=== PATIENT | female | born 1995 | race American Indian/Alaskan Native ===

== ENCOUNTER 2020-08-27 09:49 | Emergency (ER) | payer OTHER ==
[2020-08-27 10:04] VITALS: BP 119/82
[2020-08-27] MEDS ORDERED: ALUM-MAG HYDROXIDE-SIMETHICONE 200-200-20MG/5ML ORAL LIQD 30 ML PO STA (10:44)
[2020-08-27] MEDS ORDERED: diphenhydrAMINE 25 MG/10 ML ORAL LIQUID PO ONE (10:52)
[2020-08-27] MEDS ORDERED: LIDOCAINE VISCOUS 2% 15 ML ORAL LIQD PO ONE (10:52)
[2020-08-27 11:02] LABS: Basophils % (Auto) 0.5 % (0.0-1.8); Eosinophils % (Auto) 0.8 % (0.0-4.3); Hematocrit 41.2 % (30.3-42.9); Lymphocytes # (Auto) 1.2 K/mm3 (1.2-5.4); Mean Corpuscular HGB Conc 34 % (30-34); Mean Corpuscular Volume 88 fl (79-97); Monocytes # (Auto) 0.5 K/mm3 (0.0-0.8); Monocytes % (Auto) 12.7 % (0.0-7.3); Platelet Count 321 K/mm3 (140-440); Red Blood Count 4.68 M/mm3 (3.65-5.03); Red Cell Distribution Width 13.8 % (13.2-15.2)
--- NOTE | 2020-08-27 11:14 | Emergency Department Report ---
ED N/V/D HPI - General Chief complaint: Abdominal Pain Stated complaint: PAIN ON LEFT SIDE, VOMITING Time Seen by Provider: 08/27/20 10:37 Source: patient Mode of arrival: Ambulatory Limitations: No Limitations - History of Present Illness Initial comments: 35-year-old -[place] female [facility] emergency department complaining of left upper quadrant abdominal pain ache and nausea for the last day of a unknown etiology. She is unsure if her ingestion of a CBD gummy on yesterday played a role. States that she ate this coming on and on empty stomach and began to have some discomfort to her abdomen shortly after. Pain is crampy and sometimes sh gillian and associated with nausea off and on. Ports no fever, chills, sweats. No hemoptysis, no hematochezia. No constipation or diarrhea states that she is having abnormal periods but that has been her life history noted no changes in that regard. She denies any trauma. MD complaint: nausea, vomiting, diarrhea, abdominal pain -: Gradual Description of Vomiting: food contents, watery, other Description of Diarrhea: other (Much more nausea than vomiting episodes multiple episodes of diarrhea) Associated Abdominal Pain: Yes Location: diffuse - Related Data Previous Rx's Medication Instructions Recorded Last Taken Type Hyoscyamine Subl [Levsin Sl 0.125 0.125 mg SL Q6HR PRN #20 tab 08/27/20 Unknown Rx TAB] Allergies Allergy/AdvReac Type Severity Reaction Status Date / Time No Known Allergies Allergy Unverified 04/25/14 13:45 ED Review of Systems ROS: Stated complaint: PAIN ON LEFT SIDE, VOMITING Other details as noted in HPI Comment: All other systems reviewed and negative ED Past Medical Hx - Past Medical History Previous Medical History?: Yes Hx Psychiatric Treatment: (schitzophrenia) Additional medical history: depression - Surgical History Past Surgical History?: No - Social History Smoking Status: Current Every Day Smoker Substance Use Type: Marijuana - Medications Home Medications: Home Medications Medication Instructions Recorded Confirmed Last Taken Type Hyoscyamine Subl [Levsin Sl 0.125 0.125 mg SL Q6HR PRN #20 tab 08/27/20 Unknown Rx TAB] ED Physical Exam - General Limitations: No Limitations General appearance: alert, in no apparent distress - Head Head exam: Present: atraumatic, normocephalic - Eye Eye exam: Present: normal appearance - ENT ENT exam: Present: mucous membranes moist - Neck Neck exam: Present: normal inspection - Respiratory Respiratory exam: Present: normal lung sounds bilaterally. Absent: respiratory distress - Cardiovascular Cardiovascular Exam: Present: regular rate, normal rhythm. Absent: systolic murmur, diastolic murmur, rubs, gallop - GI/Abdominal GI/Abdominal exam: Present: soft, tenderness (Tenderness to the epigastric region and to the right upper quadrant with palpation.), normal bowel sounds, other (No Enriquez sign). Absent: organomegaly, mass, bruit - Extremities Exam Extremities exam: Present: normal inspection - Back Exam Back exam: Present: normal inspection - Neurological Exam Neurological exam: Present: alert, oriented X3 - Psychiatric Psychiatric exam: Present: normal affect, normal mood - Skin Skin exam: Present: warm, dry, intact, normal color. Absent: rash ED Course Vital Signs 08/27/20 10:01 Temperature 98.2 F Pulse Rate 92 H Respiratory 20 Rate Blood Pressure 119/82 O2 Sat by Pulse 99 Oximetry - Reevaluation(s) Reevaluation #1: 08/27/20 15:17 Awake alert and oriented x3 no acute acute distress patient is ambulatory does not appear to be in need of any discomfort she is tolerating sips of p.o. ED Medical Decision Making - Lab Data Result diagrams: 08/27/20 10:52 08/27/20 10:52 - Radiology Data Radiology results: report reviewed [address] [place] [id number] Ultrasound Report Signed Patient: KAREN ANGEL MR#: [id number] : 1995 Acct:[id number] Age/Sex: 25 / F ADM Date: 08/27/20 Loc: ED Attending Dr: Ordering Physician: ROSALVA MONTES Date of Service: 08/27/20 Procedure(s): US abdomen limited Accession Number(s): [id number] cc: ROSALVA MONTES ULTRASOUND ABDOMEN, LIMITED INDICATION / CLINICAL INFORMATION: ruq pain. COMPARISON: None available. FINDINGS: PANCREAS: Visualized portion shows no significant abnormality. LIVER: No significant abnormality. GALLBLADDER: No significant abnormality. BILE DUCTS: No significant abnormality. Common bile duct measures 1.3 mm. FREE FLUID: None. ADDITIONAL FINDINGS: None. IMPRESSION: 1. No significant sonographic abnormality of the right upper quadrant. Signer Name: Faraz Liang MD Signed: 08/27/2020 2:23 PM Workstation Name: [id number] Transcribed By: DT Dictated By: Ubaldo Liang MD Electronically Authenticated By: Ubaldo Liang MD Signed Date/Time: 08/27/20 1423 - Medical Decision Making This patient presents with abdominal pain of unclear etiology. Their evaluation has not identified a emergent etiology for the abdominal pain. Specifically, given the very benign exam, normal laboratory studies, and lack of significant risk factors, I have a very low suspicion for appendicitis, ischemic bowel, bowel perforation, or any other life threatening disease. I have discussed with the patient the level of uncertainty with undifferentiated abdominal pain and clearly explained the need to follow-up as noted on the discharge instructions, or return to the Emergency Department immediately if the pain worsens, develops fever, persistent and uncontrollable vomiting, or for any new symptoms or concerns. I discussed with the patient that this presentation today for abdom inal pain could represent a significant risk for an acute abdominal process. Although the tests in the ED were essentially normal, there is still a possibility of a process such as appendicitis, diverticulitis, cholecystitis, ulcer, early bowel obstruction, mesenteric ischemia, kidney stone, or even kidney infection which could subsequently cause disability or . The patient understands that they must return within 24 hours for a recheck or see their physician within 24 hours for re-exam due to the possibility of significant surgical or medical process. Also advised Alyssa Angel and on the recommendation to discontinue the utilization of her [facility] Critical care attestation.: If time is entered above; I have spent that time in minutes in the direct care of this critically ill patient, excluding procedure time. ED Disposition Clinical Impression: Abdominal pain Disposition: DC-01 TO HOME OR SELFCARE Is pt being admited?: No Does the pt Need Aspirin: No Condition: Stable Instructions: Abdominal Pain, Adult, [id number], Abdominal Pain (ED) Prescriptions: Hyoscyamine Subl [Levsin Sl 0.125 TAB] 0.125 mg SL Q6HR PRN #20 tab PRN Reason: abdominal pain Referrals: [facility] [Other] - 3-5 Days
[2020-08-27 11:18] LABS: Alanine Aminotransferase 14 units/L (7-56); Albumin 4.1 g/dL (3.9-5); Blood Urea Nitrogen 9 mg/dL (7-17); Calcium 8.7 mg/dL (8.4-10.2); Hemolysis Index 43
[2020-08-27 11:24] LABS: BUN/Creatinine Ratio 13; Bilirubin,Direct < 0.2 mg/dL (0-0.2)
--- NOTE | 2020-08-27 14:28 | Ultrasound Report ---
ULTRASOUND ABDOMEN, LIMITED INDICATION / CLINICAL INFORMATION: ruq pain. COMPARISON: None available. FINDINGS: PANCREAS: Visualized portion shows no significant abnormality. LIVER: No significant abnormality. GALLBLADDER: No significant abnormality. BILE DUCTS: No significant abnormality. Common bile duct measures 1.3 mm. FREE FLUID: None. ADDITIONAL FINDINGS: None. IMPRESSION: 1. No significant sonographic abnormality of the right upper quadrant. Signer Name: Faraz Liang MD Signed: 08/27/2020 2:23 PM Workstation Name: [id number]
== END 2020-08-27 15:21 | disposition home or self-care (01) ==
LOC: ED 09:49
DX: R10.12 Left upper quadrant pain (principal); F20.9 Schizophrenia, unspecified; F32.9 Major depressive disorder, single episode, unspecified; F17.200 Nicotine dependence, unspecified, uncomplicated; F12.10 Cannabis abuse, uncomplicated; Z79.899 Other long term (current) drug therapy
CPT/HCPCS: 36415; 76705; 80048; 80076; 82150; 84703; 85025; 99284; Q0163